=== PATIENT | female | born 1950 | race African-American/Black ===

== ENCOUNTER 2023-09-08 10:28 | Observation (INO) ==
[2023-09-08] MEDS ORDERED: Aspirin EC 325 mg TAB.EC PO ONE (10:47)
[2023-09-08 11:08] LABS: Albumin 4.6 g/dL (3.2-5.2); Calcium 10.1 mg/dL (8.6-10.3); Indirect Bilirubin 0.5 mg/dL (0.3-1.0); Potassium 3.6 mmol/L (3.5-5.0); Total Bilirubin 0.5 mg/dL (0.2-1.0)
[2023-09-08 11:14] LABS: Albumin/Globulin Ratio 1.2 (1-3); Creatinine, Serum 0.78 mg/dL (0.51-0.95); Globulin 3.8 g/dL (2-4); HDL Cholesterol 112.2 mg/dL; Total Protein 8.4 g/dL (6.4-8.9); eGFR CKD-EPI 80.6 (>60)
[2023-09-08 11:16] LABS: Activated Partial Thrombo Time 31.9 seconds (26.0-38.0); INR 0.95 (0.83-1.13)
[2023-09-08 11:27] LABS: ABS Eosinophils 0.1 10^3/uL (0.0-0.5); ABS Lymphocytes 1.6 10^3/uL (1.0-4.8); ABS Monocytes 0.2 10^3/uL (0.0-0.9); ABS Neutrophils 1.7 10^3/uL (1.5-7.6); ABS Nucleated RBC 0.01 10^3/ul; Eosinophil % 1.4 %; Hematocrit 39.8 % (35-45); Hemoglobin 13.7 g/dL (11.5-14.3); Lymphocyte % 43.6 %; Mean Corpuscular Hemoglobin 29.9 pg (27-33); Mean Corpuscular Hgb Conc 34.5 g/dL (31-36); Mean Corpuscular Volume 86.7 fL (80-97); Mean Platelet Volume 7.8 fL (7.5-11.2); Nucleated Red Blood Cells % 0.2 %/100WBC (0.0-0.8); Platelet Count 224 10^3/uL (150-450); Red Blood Count 4.59 10^6/uL (3.63-4.92); Red Cell Distribution Width 13.9 % (12-17); White Blood Count 3.6 10^3/uL (3.8-11.8)
[2023-09-08 12:23] LABS: Urine Appearance Cloudy; Urine Bilirubin Negative (Negative); Urine Blood Negative (Negative); Urine Color Colorless; Urine Glucose Negative (Negative); Urine Ketones Negative (Negative); Urine Nitrite Negative (Negative); Urine Protein Negative (Negative); Urine Specific Gravity 1.004 (1.002-1.030); Urine Urobilinogen Negative (Negative)
[2023-09-08] MEDS ORDERED: Enoxaparin 40 MG/0.4 ML SYR SUBCUT SCH (13:00)
[2023-09-08 13:20] LABS: HDL Cholesterol 104.3 mg/dL
[2023-09-08] MEDS ORDERED: Iodixanol (CONTRAST) 320 MG/ML 100 ML SDV IV ONE (13:30)
[2023-09-08] MEDS ORDERED: Sulfur Hexaflouride MICROSPHR 25 MG VIAL ONE (14:12)
[2023-09-09 10:53] VITALS: BP 126/65
== END 2023-09-09 12:50 | disposition home or self-care (01) ==
LOC: ED 10:28 → EDHOLD 10:28 → SUATTDRO 11:48 → MEDTELE 13:50
PROVIDERS: ADMIT Internal Medicine; ATTEND Hospitalist